=== PATIENT | female | born 1990 | race Caucasian/White ===

== ENCOUNTER 2019-05-11 17:55 | Emergency (ER) | payer OTHER, SELFPAY ==
--- NOTE | 2019-05-11 18:05 | ED.ABDPAIN ---
HPI - Abdominal Pain General Chief Complaint: Nausea/Vomiting/Diarrhea Stated Complaint: Diarrhea/Stomach pain/nausea after eating Time Seen by Provider: 05/11/19 18:15 Source: patient and RN notes reviewed Mode of arrival: ambulatory Limitations: no limitations History of Present Illness HPI narrative: 29-year-old female presents with concern for 5 to 6-day history of diarrhea after eating, epigastric pain after eating. She denies abdominal pain, tenderness currently or on a regular basis. She denies vomiting, reports occasional nausea. Denies fever, malaise. Reports she has been eating a diet very high in fibrous vegetables for the past 2 months. elicited complaint: abdominal pain Related Data Home Medications Medication Instructions Recorded Confirmed Bc Pill 05/11/19 Allergies Allergy/AdvReac Type Severity Reaction Status Date / Time No Known Allergies Allergy Verified 05/11/19 18:07 Review of Systems Review of Systems: Narrative: CONSTITUTIONAL: Denies malaise, chills, sweats, or fever. ENT: Denies sore throat. CARDIOVASCULAR: Denies chest pain, palpitations RESPIRATORY: Denies cough or dyspnea. GASTROINTESTINAL: Reports epigastric abdominal pain after eating, nausea. Reports one episode of diarrhea roughly after every meal, no diarrhea between meals. Denies vomiting, bloody or mucous stools GENITOURINARY: Denies dysuria or hematuria. MUSCULOSKELETAL: Denies myalgia. NEUROLOGIC: Denies headache. All systems reviewed & are unremarkable except as noted in HPI and below PMFSH Comments At time of signature, agree with nursing past medical, surgical, social and family history. There is no relevant family history pertinent to the presenting complaint Exam Narrative: Exam Narrative: GENERAL: Well-appearing, well-nourished, and in no acute distress. HEAD: Normocephalic, atraumatic. EYES: PERRLA, conjunctivae clear, and EOMI. ENT: Nares clear, no rhinorrhea or epistaxis. Mucous membranes moist. Oropharynx without edema, erythema, or lesions. Tonsils not enlarged and without exudate. NECK: Supple. No lymphadenopathy CHEST: Speaks in full sentences. No respiratory distress. HEART: Regular rate and rhythm. ABDOMEN: Soft, flat, nondistended. No guarding, rebound tenderness, or rigid. No pulsatilla masses. Bowel sounds present in all four quadrants. No organomegaly. Negative Mallory?s sign. No periumbilical tenderness. No Supra public tenderness or distension. Good femoral pulses bilaterally. No hernia noted. No scars or surface trauma. SKIN: Warm, dry, no rash. NEURO: Alert and oriented x3. PSYCH: Normal mood and affect Course Course Emergency Course: Patient is aware of diagnosis, understands and agrees to treatment plan. Anticipatory guidance given. Patient agrees to follow-up as directed and is aware of reasons to seek care at the emergency department. Portions of this record may have been created with voice recognition software Vital Signs Vital signs: Vital Signs Temperature 98.3 F 05/11/19 18:09 Pulse Rate 67 05/11/19 18:09 Respiratory Rate 16 05/11/19 18:09 Blood Pressure 143/74 H 05/11/19 18:09 Pulse Oximetry 99 05/11/19 18:09 Temperature 98.3 F 05/11/19 18:09 Pulse Rate 67 05/11/19 18:09 Respiratory Rate 16 05/11/19 18:09 Blood Pressure 143/74 H 05/11/19 18:09 Pulse Oximetry 99 05/11/19 18:09 Reviewed. Patient has been instructed to follow up with her primary care provider within the next week regarding her elevated blood pressure today. MDM - Abdominal Pain MDM Narrative Medical decision making narrative: No evidence of pancreatitis, AAA, choledocholithiasis, cholangitis, mesenteric ischemia, small bowel obstruction, diverticulitis, appendicitis, or pelvic etiology such as ovarian torsion, TOA, or ectopic . Patient has no history of peptic ulcer, H. pylori, chronic aspirin NSAID or corticosteroid use, chronic alcohol use, no history of inflammatory claudia
[2019-05-11 18:09] VITALS: BP 143/74; PULSE 67; RESP 16; TEMP 36.8; O2SAT 99
== END 2019-05-11 18:36 | disposition home or self-care (01) ==
PROVIDERS: Emergency Provider Nurse Practitioner; PCP Family Medicine
DX: R10.13 Epigastric pain (principal); R19.7 Diarrhea, unspecified
CPT/HCPCS: 99203; G0463

== ENCOUNTER 2022-04-04 13:40 | Emergency (ER) | payer OTHER, SELFPAY ==
[2022-04-04 13:53] VITALS: BP 134/94; PULSE 115; RESP 18; TEMP 36.8; O2SAT 98
--- NOTE | 2022-04-04 13:57 | ED.URI ---
HPI - URI/Sore Throat General Chief Complaint: Upper Respiratory Infection Stated Complaint: runny nose,cough Time Seen by Provider: 04/04/22 13:57 Source: patient Mode of arrival: ambulatory Limitations: no limitations History of Present Illness HPI Narrative: 32-year-old female presents with complaint of nasal congestion, sinus pressure off and on for several weeks. Reports that her just got diagnosed with strep throat that she does not have his sore throat. Patient is concerned she has a sinus infection. Afebrile. Denies nausea vomiting diarrhea. All systems reviewed and negative except as noted above. Related Data Allergies Allergy/AdvReac Type Severity Reaction Status Date / Time No Known Allergies Allergy Verified 05/11/19 18:07 Review of Systems Review of Systems: CONSTITUTIONAL: Denies fever, chills, or sweats. EYES: Denies visual changes, redness, or discharge. ENT: Reports rhinorrhea, congestion, sinus pressure. Denies sore throat, or otalgia. CARDIOVASCULAR: Denies chest pain, palpitations, or edema. RESPIRATORY: Denies cough or dyspnea. GASTROINTESTINAL: Denies abdominal pain, nausea, vomiting, or diarrhea. GENITOURINARY: Denies dysuria or hematuria. SKIN: Denies rash or itching. MUSCULOSKELETAL: Denies back pain, joint pain, or myalgia. NEUROLOGIC: Denies headache, numbness, or weakness. PSYCHIATRIC: Denies anxiety or depression. All other systems reviewed are negative, except as documented in HPI. PMFSH Comments At time of signature, agree with nursing past medical, surgical, social and family history. There is no relevant family history pertinent to the presenting complaint. Exam Narrative: GENERAL: This is a well-nourished, well-developed patient, in no apparent distress. HEAD: normocephalic, atraumatic. EYES: PERRL. Sclera clear/white. Vision is grossly intact. EARS: External ears normal, auditory canals clear and without drainage, fluid to bilateral TMs. NOSE: External nose normal with Regular nasal drainage, erythema swelling to both nares. Bilateral maxillary sinus tenderness. THROAT: Mucous membranes moist, Postnasal drainage noted. NECK: Neck supple, non-tender without lymphadenopathy, masses or thyromegaly. CARDIOVASCULAR: Regular rate and rhythm without murmurs, gallops, or rubs. RESPIRATORY: Clear to auscultation. Breath sounds equal bilaterally. No wheezes, rales, or rhonchi. SKIN: warm, Dry, intact with no suspicious lesions or rash, good texture and turgor. NEURO: awake, alert, and oriented to person, place and time. There were no obvious focal neurologic abnormalities. EXTREMITIES: No joint tenderness, effusion, or edema noted. Course Course Level of Care: Express Care Visit Vital Signs Vital signs: Vital Signs Temperature 36.8 C 04/04/22 13:53 Pulse Rate 115 H 04/04/22 13:53 Respiratory Rate 18 04/04/22 13:53 Blood Pressure 134/94 H 04/04/22 13:53 Pulse Oximetry 98 04/04/22 13:53 Oxygen Delivery Room Air 04/04/22 13:53 Temperature 36.8 C 04/04/22 13:53 Pulse Rate 115 H 04/04/22 13:53 Respiratory Rate 18 04/04/22 13:53 Blood Pressure 134/94 H 04/04/22 13:53 Pulse Oximetry 98 04/04/22 13:53 Oxygen Delivery Room Air 04/04/22 13:53 Reviewed MDM - URI/Sore Throat MDM Narrative Medical decision making narrative: will treat for bacterial sinusitis due to duration of symptoms and exam findings. Patient is aware of diagnosis, understands and agrees to treatment plan. Anticipatory guidance given. Patient agrees to follow-up as directed and is aware of reasons to seek care at the emergency department. Portions of this record may have been created with voice recognition software Differential Diagnosis Differential diagnosis: Likely upper respiratory infection, sinusitis and viral infection Discharge Plan Discharge Clinical Impression: Acute bacterial sinusitis Patient Disposition: Home, Self-Care [facility]
== END 2022-04-04 14:27 | disposition home or self-care (01) ==
PROVIDERS: Emergency Provider Nurse Practitioner Family
DX: J01.90 Acute sinusitis, unspecified (principal)
CPT/HCPCS: 99213; G0463

== ENCOUNTER 2022-11-23 16:05 | Emergency (ER) | payer OTHER, SELFPAY ==
[2022-11-23 16:13] VITALS: BP 150/87; PULSE 62; RESP 16; TEMP 37.7; O2SAT 100
--- NOTE | 2022-11-23 16:15 | ED.URI ---
HPI - URI/Sore Throat General Chief Complaint: Upper Respiratory Infection Stated Complaint: Sore Throat,Fatigue Time Seen by Provider: 11/23/22 16:15 Source: patient Mode of arrival: ambulatory Limitations: no limitations History of Present Illness HPI Narrative: 32-year-old female presents with complaint of runny nose, postnasal drainage, sore throat, cough, sinus pressure and congestion for the past 2 weeks. Reports that her daughter had a runny nose from daycare for 3-5 days and has resolved. Patient reports that she got sick daughter and has not been able to get better. Reports that her symptoms are getting progressively worse. Taking [id number] medications with no relief of symptoms. All systems reviewed and negative except as noted above. Related Data Allergies Allergy/AdvReac Type Severity Reaction Status Date / Time No Known Allergies Allergy Verified 11/23/22 16:10 Review of Systems Review of Systems: CONSTITUTIONAL: Denies fever, chills, or sweats. Reports fatigue. EYES: Denies visual changes, redness, or discharge. ENT: Reports rhinorrhea, congestion, sinus pressure, postnasal drainage sore throat. Denies otalgia. CARDIOVASCULAR: Denies chest pain, palpitations, or edema. RESPIRATORY: Reports cough. Denies dyspnea. GASTROINTESTINAL: Denies abdominal pain, nausea, vomiting, or diarrhea. GENITOURINARY: Denies dysuria or hematuria. SKIN: Denies rash or itching. MUSCULOSKELETAL: Denies back pain, joint pain, or myalgia. NEUROLOGIC: Denies headache, numbness, or weakness. PSYCHIATRIC: Denies anxiety or depression. All other systems reviewed are negative, except as documented in HPI. PMFSH Comments At time of signature, agree with nursing past medical, surgical, social and family history. There is no relevant family history pertinent to the presenting complaint. Exam Narrative: GENERAL: This is a well-nourished, well-developed patient, patient ill-appearing but in no acute distress. HEAD: normocephalic, atraumatic. EYES: PERRL. Sclera clear/white. Vision is grossly intact. EARS: External ears normal, auditory canals clear and without drainage, fluid bilateral TMs without erythema. No perforation bilaterally. NOSE: External nose normal with purulent nasal drainage, erythema swelling to bilateral nares. Bilateral frontal and maxillary sinus tenderness on palpation. THROAT: Mucous membranes moist, erythema with purulent postnasal drainage. NECK: Neck supple, non-tender without lymphadenopathy, masses or thyromegaly. CARDIOVASCULAR: Regular rate and rhythm without murmurs, gallops, or rubs. RESPIRATORY: Clear to auscultation. Breath sounds equal bilaterally. No wheezes, rales, or rhonchi. SKIN: warm, Dry, intact with no suspicious lesions or rash, good texture and turgor. NEURO: awake, alert, and oriented to person, place and time. There were no obvious focal neurologic abnormalities. EXTREMITIES: No joint tenderness, effusion, or edema noted. Course Course Level of Care: Express Care Visit Vital Signs Vital signs: Vital Signs Temperature 37.7 C H 11/23/22 16:13 Pulse Rate 62 11/23/22 16:13 Respiratory Rate 16 11/23/22 16:13 Blood Pressure 150/87 H 11/23/22 16:13 Pulse Oximetry 100 11/23/22 16:13 Oxygen Delivery Room Air 11/23/22 16:13 Temperature 37.7 C H 11/23/22 16:13 Pulse Rate 62 11/23/22 16:13 Respiratory Rate 16 11/23/22 16:13 Blood Pressure 150/87 H 11/23/22 16:13 Pulse Oximetry 100 11/23/22 16:13 Oxygen Delivery Room Air 11/23/22 16:13 Reviewed MDM - URI/Sore Throat MDM Narrative Medical decision making narrative: Will prescribe patient antibiotic today to treat bacterial sinusitis due to duration of symptoms and exam findings. Patient agrees with plan of care. Patient is aware of diagnosis, understands and agrees to treatment plan. Anticipatory guidance given. Patient agrees to follow-up as directed and is aware of reasons to seek
== END 2022-11-23 16:26 | disposition home or self-care (01) ==
PROVIDERS: Emergency Provider Nurse Practitioner Family
DX: J01.90 Acute sinusitis, unspecified (principal); B96.89 Other specified bacterial agents as the cause of diseases classified elsewhere
CPT/HCPCS: 99213; G0463